=== PATIENT | female | born 1935 | race Caucasian/White ===

== ENCOUNTER 2017-02-23 09:39 | Inpatient (IN) | payer MEDICARE ==
[2017-02-16 14:05] LABS: HEMATOCRIT 25.4 % (36.0-48.0); HEMOGLOBIN 7.4 g/dL (12.0-16.0)
[2017-02-16 14:16] LABS: BUN (BLOOD UREA NITROGEN) 31 MG/DL (6-23); CALCIUM, SERUM 9.1 MG/DL (8.5-10.4); CHLORIDE, SERUM 111 MMOL/L (96-112); CO2 (CARBON DIOXIDE) 28 MMOL/L (24-34); CREATININE 1.57 MG/DL (0.55-1.02); GFR AFRICAN AMERICAN 35 ML/MIN (>=60); GFR NON AFRICAN AMERICAN 30 ML/MIN (>=60); GLUCOSE, SERUM 88 MG/DL (60-99); POTASSIUM, SERUM 4.9 MMOL/L (3.5-5.3); SODIUM, SERUM 142 MMOL/L (135-148)
--- NOTE | ~2017-02-23 | DS ---
Discharge Summary [facility] [address] [place]. [address] NAME: RAYSHAWN DENG : 33 STATUS : DIS IN PAT#: [id number] AGE: 81 ADM/REG DATE : 02/23/17 MR#: [id number] REPORT SERV DATE: 03/04/17 DICTATED BY: GEM XIE II DATE: 03/03/17 REPORT STATUS : Draft TRANSCRIBED BY: TONY DATE: 03/03/17 Data Collection from hospitalization DISCHARGE DIAGNOSES: 1. L4-5 spondylolisthesis with grade 2-3 spondylolisthesis. 2. Left lower extremity radiculopathy, severe. 3. Hypertension. 4. History of anemia. CONSULTATIONS: None. PROCEDURES PERFORMED: 1. L4-5 complete facetectomy for decompression of the L4 and L5 nerve roots. 2. Interbody arthrodesis L4-L5. 3. Application of prosthetic device L4-L5. 4. Posterolateral arthrodesis, L4-L5. 5. Posterior nonsegmental instrumentation L4-L5. 6. Use of local autograft, allograft, substitute, and bone morphogenetic protein. 7. Use of the microscope and stereotactic spinal imaging, 02/23/2017. PATHOLOGY: Bone and soft tissue, lumbar L4-5 excision cartilage bone and skeletal muscle. MEDICATIONS: Vitamin D3 1000 units weekly; Mirapex 0.5 mg at bedtime; Maxzide one twice daily; Toprol-XL 50 mg every morning; vitamin B12 500 mcg every morning; Synthroid 75 mcg daily; Mag-Ox 400 mg twice daily; Osteo Bi-Flex one twice daily; aspirin 81 mg every morning; Plavix 75 mg every morning; multiple vitamin one daily; Tylenol 1000 mg three times daily as needed; melatonin 5 mg at bedtime; Fosamax 70 mg every seven days; Questran Light 1 packet as needed; hydrocodone 5/325 one or two every 4-6 hours as needed, and Valium 2 mg one or two every six hours as needed. CONDITION AT DISCHARGE: Upon discharge, she did appear to be doing well and had no complaints. DISPOSITION: She had been discharged home to continue a regular diet with activity as discussed. She is to follow up with me in the office on 03/18/2017. HOSPITAL COURSE: This 81-year-old female had complaints of lumbar spine related symptoms. Her symptoms were located in the left hip and buttock radiating to her knee. She reported that she was last seen in the office two weeks prior to admission and was status post MRI on 01/06/2017. When asked about the severity level of her symptoms, she reported a pain level of 6 on a 0-10 scale. Her pain and symptoms had worsened since her last visit. She did admit to the following factors that modified her symptoms; cold weather, sitting for long periods, standing and walking for long periods of time worsened her pain and symptoms. Heat and rest decreased the severity of her pain and symptoms. At the time of admission, she had been taking Tylenol for her pain. She was admitted for surgery and further treatment. Upon admission to the hospital, she had been taken to the operating room where she did undergo the above procedure. She did tolerate this well and was transferred to the recovery room. On postop day #1, she did appear to be stable and had no complaints. Her hemoglobin, Discharge Summary [address] [address] NAME: RAYSHAWN DENG : 34 STATUS : DIS IN PAT#: [id number] AGE: 81 ADM/REG DATE : 02/23/17 MR#: [id number] REPORT SERV DATE: 03/04/17 DICTATED BY: GEM XIE II DATE: 03/03/17 REPORT STATUS : Draft TRANSCRIBED BY: TONY DATE: 03/03/17 however, was at 7.7, hematocrit 25.0. She was continued on supportive care and did undergo physical therapy evaluation. On postop day #2, she did continue to do well and had no new complaints noted. She did have the usual postop pain as expected. On postop day #3, her lower extremity radiculopathy was improving, and she was noted to be eager for discharge. As she had continued to do well, she was then discharged with the above instructions. Information collected by: [email or web address]. I submit the above information as my discharge summary. CELINA/TONY Gem Xie II, M.D. / [id number] CC: Sagrario Fiore II, M.D.
--- NOTE | ~2017-02-23 | OP ---
Record Of Operation [facility] [address] [place]. [address] NAME: RAYSHAWN DENG : 34 STATUS : DIS IN PAT#: [id number] AGE: 81 ADM/REG DATE : 02/23/17 MR#: [id number] REPORT SERV DATE: 03/01/17 DICTATED BY: GEM XIE II DATE: 03/01/17 REPORT STATUS : Draft TRANSCRIBED BY: MODL DATE: 03/01/17 DATE OF PROCEDURE: 02/23/2017 PREOPERATIVE DIAGNOSES: 1. L4-5 spondylolisthesis with a grade 2/3 spondylolisthesis. 2. Left lower extremity radiculopathy, severe. POSTOPERATIVE DIAGNOSES: 1. L4-5 spondylolisthesis with a grade 2/3 spondylolisthesis. 2. Left lower extremity radiculopathy, severe. PROCEDURES: 1. L4-5 complete facetectomy for decompression of the L4 and L5 nerve roots. 2. Interbody arthrodesis, L4-L5. 3. Application of prosthetic device, L4-L5. 4. Posterolateral arthrodesis, L4-L5. 5. Posterior nonsegmental instrumentation, L4-L5. 6. Use of local autograft, allograft substitute, and bone morphogenic protein. 7. Use of the microscope and stereotactic spinal imaging. SURGEON: Gem Xie M.D. FLUIDS: 2100 mL LR. ESTIMATED BLOOD LOSS: 100 mL. 1 unit packed red blood cells. HISTORY OF PRESENT ILLNESS: This is a very friendly 81-year-old female, who is quite active and healthy. She does have a chronic anemia. Our plan had been for her to get 1 unit of blood prior to the surgery. Apparently this was not executed, and overall Dr. Toi Chacko and I discussed, and felt that dripping in 1 unit during the surgery was reasonable. DESCRIPTION OF PROCEDURE: After informed consent was obtained, the patient was brought to the operating room at her request, and general anesthesia was achieved. She was placed in a prone position. The back was prepped and draped in a sterile fashion. The stereotactic spinal pin was placed into the right side followed by completion of the intraoperative CT scan. The minimally invasive incision was now performed on the left at L4-L5, and the quadrant retractor was placed. The facetectomy was then performed under microscopic visualization. The hypertrophic facet was removed in its entirety including resection of the pars. The spinal laminar junction was taken down. The central canal was well- decompressed. Both nerve roots exhibited severe compression prior to the removal of the facets. Next, the interbody arthrodesis was initiated with diskectomy. The endplates were prepared with the curettes, the leda, and the pituitary rongeurs. The area was now irrigated and Record Of Operation [address] [place]. [address] NAME: RAYSHAWN DENG : 34 STATUS : DIS IN PAT#: [id number] AGE: 81 ADM/REG DATE : 02/23/17 MR#: [id number] REPORT SERV DATE: 03/01/17 DICTATED BY: GEM XIE II DATE: 03/01/17 REPORT STATUS : Draft TRANSCRIBED BY: TONY DATE: 03/01/17 punctate bleeding bone was identified. Next, the prosthetic device was chosen and placed at L4-5. This was placed into the anterior column. We also then placed allograft substitute, and bone morphogenic protein. Next, the pedicle screws were applied into L4 and L5 bilaterally. Percutaneous screws were used on the right. A repeat CT scan confirmed acceptable placement of the implants. At this point, the decortication was performed of the transverse processes on the left. Local autograft, allograft substitute, and bone morphogenic protein were placed along the decorticated surfaces. A deep drain was placed followed by standard closure. The patient was then extubated, and transferred to the PACU in stable condition. PENNY/TONY Gem Xie II, M.D. / [id number] CC: Sagrario Fiore II, M.D.
[~2017-02-23 09:39] MED LIST: ACET500CAP PO; ASAB PO; CALCIUM; CYANO1000T PO; FOSAMAX70 MG PO; LEVOTHROID50 MCG PO; LIPITOR40 PO; MAGOX4 PO; MAX25 PO; MELATONIN5 M1 PO; MIRAPEX250 PO; MIRAPEX5 PO; MULTIPLE VIT PO; MULTIVITAMIN; ONE A DAY WOME EAC PO; OS500+D PO; OSTEO BI-FLEX1 EACH PO; PLAVIX PO; QUESLITE PO; SYN075 PO; TOPXL50 PO; TRIPLE FLEX PO; VIT C; VIT D 3; VITAMIN D1000 UNI1 PO; VITAMIN D31000 UNIT PO; VITAMIN D400 UNI1 PO
[2017-02-23 11:14] LABS: BASOPHILS 1.4 %; BASOPHILS ABSOLUTE 0.04 10/3/uL (0.0-0.16); EOSINOPHILS 3.4 %; HEMOGLOBIN 7.7 g/dL (12.0-16.0); LYMPHOCYTES 43.6 %; LYMPHOCYTES ABSOLUTE 1.29 10/3/uL (0.67-4.30); MEAN PLATELET VOLUME 10.3 fL (9.2-13.0); MONOCYTES 11.1 %; MONOCYTES ABSOLUTE 0.33 10/3/uL (0.21-1.20); NEUTROPHILS 40.5 %; RBC DISTRIBUTION WIDTH 14.8 % (12.0-16.0)
[2017-02-23 11:16] LABS: MANUAL DIFF NO %; MEAN CORPUS HGB CONC 29.6 g/dL (32.0-36.0); MEAN CORPUSCULAR HEMOGLOB 24.6 pg (26.0-34.0); MEAN CORPUSCULAR VOLUME 83.1 fL (80-100); PLATELET COUNT 209 10/3/uL (150-400); RED CELL COUNT 3.13 10/6/uL (4.0-5.6)
[2017-02-26] MEDS ORDERED: V2 PO (13:47)
[2017-02-26] MEDS ORDERED: NORCO1 TA1 PO (13:47)
== END 2017-02-26 17:01 | disposition home or self-care (01) | DRG 460 ==
LOC: SDC/OF 09:39 → PACU 16:05 → 3SO 17:51
PROVIDERS: Orthopaedic Surgery
PROC: 0SG00AJ Fusion of Lumbar Vertebral Joint with Interbody Fusion Device, Posterior Approach, Anterior Column, Open Approach (ICD-10-PCS; principal; 2017-02-23 12:00)
PROC: 4A11X4G Monitoring of Peripheral Nervous Electrical Activity, Intraoperative, External Approach (ICD-10-PCS; 2017-02-23 12:00)
PROC: 30233N0 Transfusion of Autologous Red Blood Cells into Peripheral Vein, Percutaneous Approach (ICD-10-PCS; 2017-02-23 12:00)
DX: M51.16 Intervertebral disc disorders with radiculopathy, lumbar region (principal)
CPT/HCPCS: 36415; 80048; 82962; 85014; 85018; 85025; 86850; 86870; 86900; 86901; 86920; 86922; 87641; 88304; 88311; 93005; 97116-GP; 97161-GP; A9270-GY; C1713; C1768; J0690; J1030; J2250; J2405; J2710; J3010; P9016